=== PATIENT | female | born 1980 | race Caucasian/White ===

== ENCOUNTER 2019-05-27 17:57 | Emergency (ER) | payer BC ==
[~2019-05-27] VITALS: Ht 175.3 cm; Wt 90.0 kg
[~2019-05-27 17:57] MED LIST: CARDI-OMEGA1000 MG; PRENATAL1 TA1; RITE AID CALCI600 MG
[2019-05-27 18:05] VITALS: TEMP 97.6
[2019-05-27 18:48] LABS: COLLECTION METHOD CLEAN CATCH
[2019-05-27 18:51] LABS: BASO # 0.1 (0.0-0.2); BASO % 0.7 % (0.0-2.0); EOS # 0.1 (0.0-0.7); EOS % 1.2 % (0-4.0); GRAN # 4.9 (1.4-6.5); GRAN % 50.9 % (42.2-75.2); HEMATOCRIT 40.5 % (37.0-47.0); HEMOGLOBIN 13.1 g/dl (12.5-16.0); LYMPH # 3.7 (1.2-3.4); LYMPH % 37.9 % (20.0-51.0); MEAN CELL VOLUME 87 fl (80.0-100.0); MEAN CORPUSCULAR HEMOGLOBIN 28 pg (27.0-31.0); MEAN CORPUSCULAR HGB CONC 32 g/dl (33.0-37.0); MEAN PLATELET VOLUME 9.6 fl (7.4-10.4); MONO # 0.9 (0.1-0.6); MONO % 9.1 % (1.7-9.3); PLATELET COUNT 238 K/mm3 (130-400); RED BLOOD COUNT 4.67 M/mm3 (4.10-5.30); REDCELL DISTRIBUTION WIDTH-CV 12.4 % (11.5-14.5)
[2019-05-27 18:55] LABS: PH 9 (5-8); SQUAMOUS EPITHELIAL 0-2 /hpf; URINE APPEARANCE Cloudy; URINE BACTERIA None Seen /hpf; URINE BILIRUBIN Negative (NEGATIVE); URINE BLOOD Negative (NEGATIVE); URINE COLOR Yellow; URINE GLUCOSE Negative (NEGATIVE); URINE KETONE Negative (NEGATIVE); URINE LEUKOCYTE ESTERASE Negative (NEGATIVE); URINE NITRATE Negative (NEGATIVE); URINE PROTEIN(semi-quant) Negative (NEGATIVE); URINE RBC 0-2 /hpf; URINE UROBILINOGEN Negative (NEGATIVE)
[2019-05-27 19:07] LABS: ALBUMIN 4.5 gm/dL (3.5-5.0); BILIRUBIN,TOTAL 0.5 mg/dL (0.0-1.0); C-REACTIVE PROTEIN 3.5 mg/dL (0.0-0.9); CALCIUM 9.3 mg/dL (8.4-10.2); CREATININE, serum 0.79 (0.52-1.25); POTASSIUM 3.8 mmol/L (3.4-5.0); TOTAL PROTEIN 8.3 gm/dL (6.4-8.2)
[2019-05-27] MEDS ORDERED: EPA FISH OIL1 SGL PO (19:17)
[2019-05-27] MEDS ORDERED: DULCOLAX STOOL100 MG PO (19:18)
[2019-05-27 20:09] VITALS: BP 142/80; PULSE 66
== END 2019-05-27 20:05 | disposition home or self-care (01) ==
LOC: COL.ER 17:57
PROVIDERS: Family Medicine
DX: K56.7 Ileus, unspecified (principal); Z90.710 Acquired absence of both cervix and uterus
CPT/HCPCS: J1170; J2405; J7030; Q9967

== ENCOUNTER 2021-03-13 11:45 | Emergency (ER) | payer BC ==
[~2021-03-13] VITALS: Ht 175.3 cm; Wt 100.0 kg
[~2021-03-13 11:45] MED LIST changes: +DULCOLAX STOOL100 MG PO; +EPA FISH OIL1 SGL PO
[2021-03-13 11:55] VITALS: TEMP 97.9
[2021-03-13] MEDS ORDERED: NORCO 325 MG-51 TAB PO (13:31)
[2021-03-13] MEDS ORDERED: ZOFRAN ODT4 MG PO (13:31)
[2021-03-13] MEDS ORDERED: FLEXERIL 1010 MG/TAB PO (13:31)
[2021-03-13 14:38] VITALS: BP 125/69; PULSE 72
== END 2021-03-13 14:38 | disposition home or self-care (01) ==
LOC: COL.ER 11:45
DX: S06.0X9A Concussion with loss of consciousness of unspecified duration, initial encounter (principal); S13.9XXA Sprain of joints and ligaments of unspecified parts of neck, initial encounter; V80.010A Animal-rider injured by fall from or being thrown from horse in noncollision accident, initial encounter; Y93.52 Activity, horseback riding
CPT/HCPCS: J2405; J2550; J3010; J7030